=== PATIENT | male | born 1985 | race Caucasian/White ===

== ENCOUNTER 2021-08-11 18:39 | Emergency (ER) | payer OTHER ==
[~2021-08-11] VITALS: Ht 177.8 cm; Wt 95.4 kg
[2021-08-11 19:10] VITALS: BP 124/90
[2021-08-11] MEDS ORDERED: LIDOCAINE 1% PF 5 ML VIAL. INJ ONE (19:30)
--- NOTE | 2021-08-11 20:09 | PHYS DOC ---
Past Medical History Past Surgical History: No Surgical History General Adult EDM: Chief Complaint: LACERATION/AVULSION HPI: HPI: Patient is a 36 year old right hand dominant male presents for evaluation of laceration to his left middle finger. Patient states prior to arrival finger smashed in a drawer. Patient has a 2 cm laceration just medial to the nail posterior aspect of the middle finger. No tendon involvement nail seems to be intact cap refill less than 2 seconds. Patient's tetanus is not up-to-date. Review of Systems: Review of Systems: Constitutional: Denies fever or chills. [] Eyes: Denies change in visual acuity. [] HENT: Denies nasal congestion or sore throat. [] Respiratory: Denies cough or shortness of breath. [] Cardiovascular: Denies chest pain or edema. [] GI: Denies abdominal pain, nausea, vomiting, bloody stools or diarrhea. [] : Denies dysuria. [] Musculoskeletal: Denies back pain or joint pain. [] Integument: Denies rash. [positive laceration] Neurologic: Denies headache, focal weakness or sensory changes. [] Endocrine: Denies polyuria or polydipsia. [] Lymphatic: Denies swollen glands. [] Psychiatric: Denies depression or anxiety. [] Heart Score: C/O Chest Pain: N/A Risk Factors: Risk Factors: DM, Current or recent (<one month) smoker, HTN, HLP, family history of CAD, obesity. Risk Scores: Score 0 - 3: 2.5% MACE over next 6 weeks - Discharge Home Score 4 - 6: 20.3% MACE over next 6 weeks - Admit for Clinical Observation Score 7 - 10: 72.7% MACE over next 6 weeks - Early Invasive Strategies Current Medications: Current Medications Medications (Trade) Dose Ordered Sig/Abdoulaye Start Time Stop Time Status Last Admin Dose Admin Lidocaine HCl (Xylocaine-Mpf 1% 5ml Vial) 5 ml 1X ONCE 08/11/21 19:30 08/11/21 19:31 DC Allergies: Allergies: Allergies Coded Allergies Type Severity Reaction Last Updated Verified No Known Drug Allergies 08/11/21 No Physical Exam: PE: Constitutional: Well developed, well nourished, no acute distress, non-toxic appearance. [] HENT: Normocephalic, atraumatic, bilateral external ears normal, oropharynx moist, no oral exudates, nose normal. [] Eyes: PERRLA, EOMI, conjunctiva normal, no discharge. [] Neck: Normal range of motion, no tenderness, supple, no stridor. [] Cardiovascular:Heart rate regular rhythm, no murmur [] Lungs & Thorax: Bilateral breath sounds clear to auscultation [] Abdomen: Bowel sounds normal, soft, no tenderness, no masses, no pulsatile masses. [] Skin: Warm, dry, no erythema, no rash. [] laceration 2cm right Back: No tenderness, no CVA tenderness. [] Extremities: No tenderness, no cyanosis, no clubbing, ROM intact, no edema. [] Neurologic: Alert and oriented X 3, normal motor function, normal sensory function, no focal deficits noted. [] Psychologic: Affect normal, judgement normal, mood normal. [] Current Patient Data: Vital Signs: Vital Signs Date Time Temp Pulse Resp B/P (MAP) Pulse Ox O2 Delivery O2 Flow Rate FiO2 08/11/21 19:10 98.1 79 18 124/90 (101) 97 Room Air 98.1 EKG: EKG: [] Radiology/Procedures: Radiology/Procedures: [] Course & Med Decision Making: Course & Med Decision Making Pertinent Labs and Imaging studies reviewed. (See chart for details) []procedure digital block 4cc lidocaine 1% middle finger 4 simple interrupted five-point 0 nylon sutures placed. Wound cleaned with Betadine and explored no foreign bodies notified patient tolerated procedure no complications. Arnold Disclaimer: Arnold Disclaimer: This electronic medical record was generated, in whole or in part, using a voice recognition dictation system. Departure Departure Impression: Primary Impression: Finger laceration Disposition: HOME / SELF CARE / HOMELESS Condition: STABLE Patient Instructions: Fingertip Laceration Additional Instructions: RASHEL Alejandra I DO Aug 11, 2021 20:09
[2021-08-11] MEDS ORDERED: DIPHTH,PERTUSS(ACELL),TET TOX 0.5 ML DISP.SYRIN. VAX IM ONE (20:45)
== END 2021-08-11 21:15 | disposition home or self-care (01) ==
LOC: ER 18:39
DX: S61.213A Laceration without foreign body of left middle finger without damage to nail, initial encounter (principal); W23.0XXA Caught, crushed, jammed, or pinched between moving objects, initial encounter; Y93.89 Activity, other specified; Y92.89 Other specified places as the place of occurrence of the external cause; Y99.8 Other external cause status
CPT/HCPCS: 12001; 90471; 90715; 99283; J3490

== ENCOUNTER 2021-08-18 07:34 | Emergency (ER) | payer OTHER ==
[~2021-08-18] VITALS: Ht 177.8 cm; Wt 86.3 kg
--- NOTE | 2021-08-18 07:47 | PHYS DOC ---
Past Medical History Past Surgical History: No Surgical History Adult General Chief Complaint Chief Complaint: SUTURE/STAPLE REMOVAL HPI HPI Patient is a 36 year old male presents for suture removal. He has 4 sutures in the middle finger on the right hand. He has not had any redness discharge or other problems Review of Systems Review of Systems Constitutional: Denies fever or chills [] Respiratory: Denies cough or shortness of breath [] Integument: Denies rash or skin lesions [] All other systems were reviewed and found to be within normal limits, except as documented in this note. Allergies Allergies Allergies Coded Allergies Type Severity Reaction Last Updated Verified No Known Drug Allergies 08/11/21 No Physical Exam Physical Exam Constitutional: Well developed, well nourished, no acute distress, non-toxic appearance. [] HENT: Normocephalic, atraumatic, bilateral external ears normal, Eyes: EOMI, conjunctiva normal, no discharge. [] Neck: Normal range of motion, Skin: Warm, dry, no erythema, no rash, wound is healing well, 4 sutures are in the right middle finger. [] Psychologic: Affect normal, judgement normal, mood normal. [] EKG EKG [] Radiology/Procedures Radiology/Procedures [] Course & Med Decision Making Course & Med Decision Making Pertinent Labs and Imaging studies reviewed. (See chart for details) [] Sutures were removed without difficulty Dragon Disclaimer Dragon Disclaimer This electronic medical record was generated, in whole or in part, using a voice recognition dictation system. Departure Departure Impression: Primary Impression: Visit for suture removal Disposition: HOME / SELF CARE / HOMELESS Condition: GOOD Referrals: NO PCP (PCP) Patient Instructions: Suture Removal NEETA CROWE MD Aug 18, 2021 07:47
== END 2021-08-18 07:55 | disposition home or self-care (01) ==
LOC: ER 07:34
DX: S61.212D Laceration without foreign body of right middle finger without damage to nail, subsequent encounter (principal); Y28.8XXD Contact with other sharp object, undetermined intent, subsequent encounter
CPT/HCPCS: 99281